=== PATIENT | male | born 1930 | race Caucasian/White ===

== ENCOUNTER 2017-08-18 06:36 | Emergency (ER) | payer MEDICARE, OTHER ==
--- NOTE | 2017-08-18 08:12 | CT ---
CHEST CT WITHOUT CONTRAST: Date: 08/18/17 HISTORY: Evaluate for rib fracture. COMPARISON: None. TECHNIQUE: Chest CT is performed without contrast. Coronal reformatted images submitted for interpretation. FINDINGS: Limited evaluation of the mediastinum due to lack of IV contrast. No significant masses or lymphadeno travis. No hematoma. Heart size is normal. No significant pericardial fluid. Coronary artery calcifica tions are identified. Atherosclerosis of aorta. Hypodensities in the liver are too small to characterize, but are statistically favored to be cysts. Remaining upper solid organs and alimentary canal is unremarkable. Trachea and central bronchi are patent. There are linear opacities in the lung parenchyma suggesting areas of atelectasis and scar. No consolidation. No pneumothorax or pleural effusion. No evidence of a left-sided rib fracture. There are fractures involving the posterior 9th, 10th, and 11th ribs. IMPRESSION: Posterior right rib fractures. POS: [facility]
--- NOTE | 2017-08-18 08:57 | RAD ---
LEFT HIP 2 VIEWS: Date: 08/18/17 HISTORY: Trauma. Left hip pain. FINDINGS/IMPRESSION: Postop changes of metallic hardware are seen in the left proximal femur. Degenerative changes are pre sent in the left hip joint. No acute fracture or dislocation is identified. POS: [facility]
--- NOTE | 2017-08-18 09:02 | RAD ---
RIGHT HIP 2 VIEWS: Date: 08/18/17 HISTORY: Fall. Right hip pain. FINDINGS/IMPRESSION: A right femoral head prosthesis is seen in good position and alignment. No fracture or dislocation is identified. POS: [facility]
== END 2017-08-18 08:41 | disposition home or self-care (01) ==
LOC: ERS 06:36
DX: S22.41XA Multiple fractures of ribs, right side, initial encounter for closed fracture (principal); F03.90 Unspecified dementia, unspecified severity, without behavioral disturbance, psychotic disturbance, mood disturbance, and anxiety; Z79.82 Long term (current) use of aspirin; Z79.899 Other long term (current) drug therapy; W19.XXXA Unspecified fall, initial encounter
CPT/HCPCS: 71250

== ENCOUNTER 2018-03-05 02:46 | Emergency (ER) | payer MEDICARE, OTHER ==
[2018-03-05 03:32] LABS: #Eosinphils 0.5 thou/uL (0.0-0.7); #Lymphocytes 0.7 thou/uL (1.20-3.40); #Monocytes 0.9 thou/uL (0.11-0.59); #Neutrophils 4.8 thou/uL (1.40-6.50); %Basophils 0.2 % (0.0-1.0); %Eosinophils 6.9 % (0.0-10.0); %Lymphocytes 9.5 % (21.0-51.0); %Monocytes 13.6 % (0.0-10.0); %Neutrophils 69.9 % (42.0-75.0); Hemoglobin 14.3 g/dL (14.0-18.0); Mean Corpuscular HGB CONC 33.5 g/dL (32.0-36.0); Mean Corpuscular Hemoglobin 31.8 pg (27.0-31.0); Mean Corpuscular Volume 94.9 fL (78.0-98.0); Mean Platelet Volume 6.5 fL (7.4-10.4); Platelet Count 161 thou/uL (130-400); Red Blood Cell (RBC) Count 4.48 mill/uL (4.70-6.10); White Blood Cell (WBC) Count 6.9 thou/uL (4.8-10.8)
[2018-03-05 03:49] LABS: ALT (SGPT) 9 U/L (8-55); AST (SGOT) 12 U/L (5-34); Albumin 3.7 g/dL (3.4-4.8); Alkaline Phosphatase 91 U/L (40-150); Anion Gap 11 mmol/L (10-20); BUN (Urea Nitrogen) 19 mg/dL (8.4-25.7); Bilirubin, Total 0.5 mg/dL (0.2-1.2); Calc. Creatinine Clearance 0 mL/min (70-130); Calcium 9.2 mg/dL (7.8-10.44); Carbon Dioxide 25 mmol/L (23-31); Chloride 106 mmol/L (98-107); Estimated GFR-MDRD Greater than 90; Globulin 3.5 g/dL (2.4-3.5); Glucose 119 mg/dL (83-110); Protein, Total 7.2 g/dL (5.8-8.1); Sodium 138 mmol/L (136-145)
[2018-03-05 03:52] LABS: CKMB 1.5 ng/mL (0-6.6); Troponin I Less than 0.010 ng/mL (< 0.028)
[2018-03-05 05:38] LABS: Bilirubin Negative (Negative); Blood, Urine Moderate (Negative); Clarity CLEAR (Clear); Glucose, Urine (Dipstick) Negative (Negative); Leukocyte Negative (Negative); Nitrite Negative (Negative); Protein, Urine (Dipstick) Negative (Neg-Trace); Specific Gravity, Urine 1.021 (1.002-1.036)
[2018-03-05] MEDS ORDERED: Acetaminophen 500 MG TAB ONE (05:39)
[2018-03-05 05:41] LABS: Bacteria/HPF None Seen HPF (None Seen); Hyaline Casts/LPF 0-3 HYALINE CAST LPF (0-3 Hyaline); Squamous Epithelial None Seen HPF (0-3); WBC/HPF 0-3 HPF (0-3)
--- NOTE | 2018-03-05 08:18 | RAD ---
CHEST ONE VIEW: History: Cough. Comparison: 2017 FINDINGS: Lungs are hypoinflated with vascular crowding. Patient rotated to the left which gives the ectatic ap pearance to the aorta. Small chronic elevation of the left hemidiaphragm. IMPRESSION: Chronic findings. No acute intrathoracic abnormality given the limits of this exam. POS: [facility]
--- NOTE | 2018-03-10 12:16 | EKG ---
Test Reason : ER INDICATION Blood Pressure : / mmHG Vent. Rate : 068 BPM Atrial Rate : 267 BPM P-R Int : 000 ms QRS Dur : 130 ms QT Int : 410 ms P-R-T Axes : 000 -52 055 degrees QTc Int : 435 ms Wide QRS rhythm Right bundle branch block Left anterior fascicular block Bifascicular block Septal infarct , age undetermined Abnormal ECG Confirmed by TYLOR AGARWAL, MIRELLA ([id number]), editor publications PEEWEE VILLAREAL ([id number]) on 03/10/2018 12:15:57 PM Referred By: Confirmed By:MIRELLA SNIDER MD
== END 2018-03-05 12:55 ==
LOC: ERS 02:46
DX: R53.1 Weakness (principal); R60.0 Localized edema; R05 Cough; F03.90 Unspecified dementia, unspecified severity, without behavioral disturbance, psychotic disturbance, mood disturbance, and anxiety; Z79.899 Other long term (current) drug therapy; Z79.82 Long term (current) use of aspirin; W07.XXXA Fall from chair, initial encounter
CPT/HCPCS: 36415; 71045; 80053; 81003; 81015; 82553; 83880; 84484; 85025; 93005

== ENCOUNTER 2018-12-06 08:42 | Emergency (ER) | payer MEDICARE, OTHER ==
[2018-12-06] MEDS ORDERED: Acetaminophen 500 MG TAB ONE (09:22)
[2018-12-06 09:26] LABS: #Eosinphils 0.2 thou/uL (0.0-0.7); #Lymphocytes 0.7 thou/uL (1.20-3.40); #Monocytes 1.2 thou/uL (0.11-0.59); #Neutrophils 9.1 thou/uL (1.40-6.50); %Eosinophils 1.6 % (0.0-10.0); %Lymphocytes 6.5 % (21.0-51.0); %Monocytes 10.6 % (0.0-10.0); %Neutrophils 81.3 % (42.0-75.0); Hemoglobin 13.4 g/dL (14.0-18.0); Mean Corpuscular HGB CONC 32.1 g/dL (32.0-36.0); Mean Corpuscular Hemoglobin 30.9 pg (27.0-31.0); Mean Corpuscular Volume 96.1 fL (78.0-98.0); Platelet Count 292 thou/uL (130-400); RBC Distribution Width 11.8 % (11.5-14.5); Red Blood Cell (RBC) Count 4.35 mill/uL (4.70-6.10); White Blood Cell (WBC) Count 11.2 thou/uL (4.8-10.8)
--- NOTE | 2018-12-06 09:34 | RAD ---
Portable frontal chest radiograph: 12/06/2018 COMPARISON: 03/05/2018 HISTORY: Generalized weakness FINDINGS: Shallow inspiration noted. Left hemidiaphragm is elevated. Stable diffuse mild increased li near interstitial density. Stable atherosclerotic calcification of the aortic arch. No pneumothorax, pleural fluid, focal consolidation, or alveolar edema. IMPRESSION: Stable appearance of the chest.
[2018-12-06 09:52] LABS: ALT (SGPT) 16 U/L (8-55); AST (SGOT) 15 U/L (5-34); Albumin 3.2 g/dL (3.4-4.8); Alkaline Phosphatase 102 U/L (40-150); Anion Gap 11 mmol/L (10-20); BUN (Urea Nitrogen) 15 mg/dL (8.4-25.7); Bilirubin, Total 0.7 mg/dL (0.2-1.2); CK (CPK) 99 U/L (30-200); Calc. Creatinine Clearance 0 mL/min (70-130); Calcium 9.2 mg/dL (7.8-10.44); Carbon Dioxide 24 mmol/L (23-31); Chloride 104 mmol/L (98-107); Estimated GFR-MDRD 73; Globulin 3.5 g/dL (2.4-3.5); Glucose 123 mg/dL (83-110); Potassium 3.8 mmol/L (3.5-5.1); Protein, Total 6.7 g/dL (5.8-8.1); Sodium 135 mmol/L (136-145)
[2018-12-06 10:23] LABS: Bilirubin Negative (Negative); Blood, Urine 2+ (Negative); Clarity Turbid (Clear); Glucose, Urine (Dipstick) Normal (Negative); Leukocyte 500 Leu/uL (Negative); Mucous/LPF Rare LPF (<2+); Nitrite Negative (Negative); Protein, Urine (Dipstick) 30 mg/dL (Neg-Trace); RBC/HPF Greater than 50 HPF (0-3); Squamous Epithelial 0-3 HPF (0-3); WBC/HPF Greater than 50 HPF (0-3)
[2018-12-06 10:37] LABS: Bacteria/HPF 3+ HPF (None Seen)
[2018-12-06] MEDS ORDERED: cefTRIAXone\\ROCEPHIN 1 GM VIAL ONE (11:22)
[2018-12-06] MEDS ORDERED: Sodium Chloride 0.9% 100 ML ONE (11:25)
== END 2018-12-06 13:50 ==
LOC: ERS 08:42
DX: N39.0 Urinary tract infection, site not specified (principal); F03.90 Unspecified dementia, unspecified severity, without behavioral disturbance, psychotic disturbance, mood disturbance, and anxiety
CPT/HCPCS: 36415; 51701; 71045; 80053; 81003; 81015; 82550; 83605; 84443; 84484; 85025; 93005; 94760; 96365; J0696; J3490